=== PATIENT | female | born 1975 | race Caucasian/White ===

== ENCOUNTER 2017-05-26 16:19 | Emergency (ER) | payer OTHER ==
[~2017-05-26] VITALS: Ht 167.6 cm; Wt 109.1 kg
[2017-05-26 16:43] VITALS: BP 153/105; PULSE 95; RESP 16; O2SAT 98
--- NOTE | 2017-05-26 16:57 | ED.REPORT ---
HPI-Abd Pain F Under 42 Date of Service May 26, 2017 ED Provider: Meeta Anne History of Present Illness: 41-year-old female here with right lower quadrant abdominal pain. The pain waxes and wanes, she has had about 7 flares in last 45 minutes. This pain is short-lived when it comes lasting only a few seconds. She has some nausea but no vomiting. She has slight diarrhea. She has a history of kidney stones last past one 3 weeks ago. She does have her appendix. She had a hysterectomy in January although has both ovaries, hx endometriosis. Pain gets to about a 7/10 on the pain scale. sHe states this does not feel like a kidney stone. No urinary symptoms. No vaginal discharge, is sexually active. No new back pain although she has a history of back pain. No fever. Nursing Notes Stated Complaint: RIGHT SIDE PAIN Chief Complaint: Female Abdominal Pain Nursing Notes Reviewed: Yes Allergies: Coded Allergies: No Known Allergies (Unverified Allergy, Unknown, 06/27/15) General Time Seen by MD: 16:49 Chief Complaint Abdominal pain, Diarrhea mild, Nausea Hx Obtained From: Patient Arrived By: Walk-in Onset Occurred: 4 days ago Symptom Duration: Waxes and wanes Progression since Onset: Waxes and wanes Location: : RLQ Quality: Sharp Radiation: : Does not radiate Severity: Maximum: Moderate Recent Healthcare: No recent doctor visit Similar Sx Previous: No Past Medical History Past Medical History Notes: Hysterectomy, kidney stones Smoking History Current Every Day Smoker Review of Systems Constitutional: Denies: Chills, Fatigue, Fever Respiratory: Denies: Dyspnea on exertion, Non-productive cough Cardiovascular: Denies: Chest pain, Edema GI: Reports: Abdominal pain, Diarrhea, Nausea, Denies: Vomiting Female: Denies: Dysuria, Flank pain, Hematuria, Pelvic pain, Urinary frequency, Urinary urgency, Urination decreased, Urination increased Musculoskeletal: Reports: Back pain Complete sys rev & neg: except as marked. Physical Exam Initial Vital Signs Vital Signs (First) Date Time Temp Pulse Resp B/P Pulse Ox O2 Delivery O2 Flow Rate FiO2 05/26/17 16:43 37.1 95 16 153/105 98 Room Air Initial VS: Reviewed, Vital signs normal Head / Eyes: Atraumatic, Normocephalic, PERRL ENT: Mucous membranes moist, Conjunctiva normal, No scleral icterus Neck: Supple, Non-tender, Full range of motion Lymphatic: No lymphadenopathy Extremities: Vascular intact, Neuro intact, No swelling, No tenderness Skin: Warm, Dry, No cyanosis Neurologic: Alert, Oriented, Nonfocal Psychiatric: Mood/affect normal, Behavior normal, Normal thought content General/Constitutional: Awake, Alert, No acute distress, Well appearing Abdomen: Atraumatic, Soft, No guarding, No rebound, BS normoactive, No distention, No hernia, No palpable mass, No pulsatile mass Tenderness/Guarding/Rebound: Positive: Tender RLQ... (Moderate) Back: Atraumatic, Inspection NL, Full range of motion, Painless range of motion , Non-tender, No midline vertebral tend, No paraspinal tenderness, No CVA tenderness Head / Eyes: Normocephalic, PERRL Interpretation & Diagnostics Interpretation & Diagnostics: PROCEDURE: CT KUB ([id number]) INDICATIONS: rlq pain TECHNIQUE: Noncontrast 5 mm thick sections acquired from the diaphragms to the symphysis. 5 mm thick coronal and sagittal reformats were then performed. For radiation dose reduction, the following was used: automated exposure control, adjustment of mA and/or kV according to patient size. COMPARISON: None. FINDINGS: Image quality: Excellent. Lung bases: Lung bases are clear. Heart size is normal. There is a small hiatal hernia. Urinary system: There is a small nonobstructing stone within the superior pole of the right kidney measuring up to 4 mm. No hydronephrosis or perinephric stranding. Both ureters appear non-dilated throughout their expected courses. Bladder wall thickness is normal; no calcified bladder stones. Other solid organs: Liver and spleen are normal in size. Gallbladder is nondistended without calcified gallstones. Pancreas is normal in contours. No adrenal nodules. Peritoneum and bowel: Unenhanced bowel loops demonstrate normal wall thickness and caliber. The appendix is normal in appearance. No free fluid or air. Nodes and vessels: No retroperitoneal or mesenteric adenopathy by size criteria. Aorta and inferior vena cava are normal in caliber. Abdominal wall: No ventral hernias. Pelvis: There is mild enlargement of the ovaries bilaterally with a right ovarian cyst measuring up to 5.3 cm and a left cyst measuring up to 3.2 cm. No free pelvic fluid. No inguinal hernias or adenopathy. Bones: No suspicious bony lesions. No vertebral body compression fractures. IMPRESSION: 1. Small nonobstructing right renal stone. No evidence of hydronephrosis. 2. No evidence of appendicitis. 3. Mild enlargement of the ovaries bilaterally with bilateral ovarian cysts. Further evaluation may be obtained with pelvic ultrasound if clinically indicated. Lab Results Interpretation Result Diagram: 05/26/17 1745 05/26/17 1745 Test 05/26/17 17:45 05/26/17 17:46 05/26/17 19:24 White Blood Count 9.3th/mm3 (3.8-10.1) Red Blood Count 5.59mil/mm3 (3.90-5.20) Hemoglobin 13.2g/dL (12.0-15.6) Hematocrit 42.5% (35.0-46.0) Mean Corpuscular Volume 76.0fL (81-100) Mean Corpuscular Hemoglobin 23.6pg (27.0-35.0) Mean Corpuscular Hemoglobin Concent 31.1% (32.0-37.0) Red Cell Distribution Width 16.7% (12.3-15.4) Platelet Count 317bil/L (150-400) Neutrophils (%) (Auto) 75.4% (40-74) Lymphocytes (%) (Auto) 15.9% (14-46) Monocytes (%) (Auto) 6.2% (4-12) Eosinophils (%) (Auto) 1.9% (0-5) Basophils (%) (Auto) 0.4% (0-3) Sodium Level 136mEq/L (134-144) Potassium Level 3.8mEq/L (3.5-5.2) Chloride Level 98mEq/L (97-108) Carbon Dioxide Level 23mmol/L (18-29) Blood Urea Nitrogen 13mg/dL (6-20) Creatinine 0.47mg/dL (0.57-1.00) Estimat Glomerular Filtration Rate 211mL/min (>59) Glucose Level 119mg/dL (60-99) Calcium Level 9.0mg/dL (8.5-10.1) Magnesium Level 2.0mg/dL (1.6-2.6) Total Bilirubin 0.2mg/dL (0.0-1.2) Aspartate Amino Transf (AST/SGOT) 22U/L (0-50) Alanine Aminotransferase (ALT/SGPT) 40U/L (0-32) Alkaline Phosphatase 79U/L (25-150) Total Protein 7.5g/dL (6.4-8.4) Albumin 4.3g/dL (3.4-5.0) Lipase 22U/L (13-60) Hold Mai Top Tube Received (Received) Urine Color Yellow (YELLOW) Urine Appearance Hazy (CLEAR,HAZY) Urine pH 6.0 (5.0-8.0) Urine Specific [place] 1.030 (1.003-1.035) Urine Protein Negativemg/dL (NEG,TRACE) Urine Glucose (UA) Negativemg/dL (NEGATIVE) Urine Ketones Negativemg/dL (NEGATIVE) Urine Occult Blood Negative (NEGATIVE) Urine Nitrite Negative (NEGATIVE) Urine Bilirubin Negative (NEGATIVE) Urine Urobilinogen 1.0mg/dL (NORMAL) Urine Leukocyte Esterase Negative (NEGATIVE) Urine RBC 0-2/hpf (0-2) Urine WBC 0-5/hpf (0-5) Urine Epithelial Cells Many/hpf (NONE-MOD) Urine Crystals None seen (NONE SEEN) Urine Bacteria Many/hpf (NONE-FEW) Urine Hyaline Casts None/lpf (NONE) Urine Granular Casts None seen (NONE SEEN) Urine Waxy Casts None seen (NONE SEEN) Urine Red Blood Cell Casts None seen (NONE SEEN) Urine White Blood Cell Casts None seen (NONE SEEN) Urine Mucus None seen (None Seen) Urine Trichomonas None seen (NONE SEEN) Urine Yeast None (NONE SEEN) Urinalysis Comment None Urine Culture Reflexed Indicated Re-Eval/Medical Decision Med Decision/Clinical Course Med Decision/Clinical Course: Patient's pain is reduced to a 2-3 out of 10. Resting comfortably in gurney. Discussed case with Dr. Contreras. Discussed case with patient. We will not do an ultrasound this time as it is unlikely torsion and she has no uterus. Ultrasound of her ovaries from one year ago shows similar findings as her ovaries appeared today. She will monitor pain and return if patient's severe, she gets fevers or worsening symptoms. Discharge & Departure Shift Change Sign-Out Laboratory Evaluation: Lab evaluation discussed Imaging Studies: Imaging discussed Procedures: Results discussed Response to Therapy: Improved Primary Impression: Right lower quadrant abdominal pain Disposition: Home Discharge Condition All VS Reviewed: Yes Condition: Stable Patient Instructions: Acute Abdominal Pain (ED) Additional Instructions: There was no evidence of kidney stones or appendicitis here today. Return immediately if Pain increases, you gets fevers or worsening symptoms for an ultrasound of your pelvis.. Follow-up with your PCP in 2 days for recheck. Drink lots of fluids, light diet as tolerated and rest. Referrals: Clint Serra MD (PCP) EDSupervising Provider for APC: Steffen Contreras MD, Linnea K ARNP May 26, 2017 16:57
[2017-05-26] MEDS ORDERED: 0.9% Sodium Chloride 1,000 ML IV ONE (16:59)
[2017-05-26 17:49] LABS: BASOPHILS % (AUTO) 0.4 % (0-3); EOSINOPHILS % (AUTO) 1.9 % (0-5); MONOCYTES % (AUTO) 6.2 % (4-12); Mean Corpuscular Hemoglobin 23.6 pg (27.0-35.0); NEUTROPHILS % (AUTO) 75.4 % (40-74); Platelet Count 317 bil/L (150-400)
--- NOTE | 2017-05-26 17:49 | DRSVH ---
PROCEDURE: CT KUB ([id number]) INDICATIONS: rlq pain TECHNIQUE: Noncontrast 5 mm thick sections acquired from the diaphragms to the symphysis. 5 mm thick coronal an d sagittal reformats were then performed. For radiation dose reduction, the following was used: aut omated exposure control, adjustment of mA and/or kV according to patient size. COMPARISON: None. FINDINGS: Image quality: Excellent. Lung bases: Lung bases are clear. Heart size is normal. There is a small hiatal hernia. Urinary system: There is a small nonobstructing stone within the superior pole of the right kidney m easuring up to 4 mm. No hydronephrosis or perinephric stranding. Both ureters appear non-dilated th roughout their expected courses. Bladder wall thickness is normal; no calcified bladder stones. Other solid organs: Liver and spleen are normal in size. Gallbladder is nondistended without calcif ied gallstones. Pancreas is normal in contours. No adrenal nodules. Peritoneum and bowel: Unenhanced bowel loops demonstrate normal wall thickness and caliber. The tierney endix is normal in appearance. No free fluid or air. Nodes and vessels: No retroperitoneal or mesenteric adenopathy by size criteria. Aorta and inferior vena cava are normal in caliber. Abdominal wall: No ventral hernias. Pelvis: There is mild enlargement of the ovaries bilaterally with a right ovarian cyst measuring up to 5.3 cm and a left cyst measuring up to 3.2 cm. No free pelvic fluid. No inguinal hernias or chery opathy. Bones: No suspicious bony lesions. No vertebral body compression fractures. IMPRESSION: 1. Small nonobstructing right renal stone. No evidence of hydronephrosis. 2. No evidence of appendicitis. 3. Mild enlargement of the ovaries bilaterally with bilateral ovarian cysts. Further evaluation may be obtained with pelvic ultrasound if clinically indicated. Dictated by: Madhu Parisi M.D. on 05/26/2017 at 17:44 Approved by: Madhu Parisi M.D. on 05/26/2017 at 17:48
[2017-05-26] MEDS ORDERED: Ondansetron 2 mg/mL 2 mL Inj IVPUSH ONE (17:55)
[2017-05-26 19:42] VITALS: BP 133/65; PULSE 67; RESP 16; O2SAT 98
[2017-05-26 19:46] LABS: APPEARANCE,URINE HAZY (CLEAR,HAZY); COLOR,URINE YELLOW (YELLOW); OCCULT BLOOD,URINE NEGATIVE (NEGATIVE)
== END 2017-05-26 19:43 | disposition home or self-care (01) ==
LOC: SED 16:19
DX: R10.31 Right lower quadrant pain (principal); R11.0 Nausea; R19.7 Diarrhea, unspecified; F17.200 Nicotine dependence, unspecified, uncomplicated; Z90.710 Acquired absence of both cervix and uterus; Z87.442 Personal history of urinary calculi
CPT/HCPCS: 36415; 74176; 80053; 81000; 83690; 83735; 85025; 87086; 96361; 96374; 96375; 99285; J1885; J2405; J7030